=== PATIENT | male | born 1960 | race Hispanic/Latino ===

== ENCOUNTER 2024-03-24 06:32 | Day surgery (SDC) | payer OTHER ==
[2024-03-22 10:52] LABS: BASOPHILS # (AUTO) 0.03 K/uL (0.00-0.20); BASOPHILS % (AUTO) 0.6 % (0.0-5.0); EOSINOPHILS # (AUTO) 0.09 K/uL (0.00-0.70); EOSINOPHILS % (AUTO) 1.9 % (0.0-8.0); HEMATOCRIT 43.7 % (42-54); IMMATURE GRANULOCYTE ABSOLUTE 0.01 K/uL (0-1); LYMPHOCYTES # (AUTO) 1.4 K/uL (1.0-4.8); LYMPHOCYTES % (AUTO) 28.5 % (21.0-51.0); MEAN CORPUSCULAR HEMOGLOBIN 31.5 pg (27.0-33.0); MEAN CORPUSCULAR HGB CONC 33.6 g/dL (32.0-36.0); MEAN CORPUSCULAR VOLUME 93.8 fL (79-99); MONOCYTES # (AUTO) 0.5 K/uL (0.1-1.0); MONOCYTES % (AUTO) 11.2 % (3.0-13.0); NEUTROPHILS # (AUTO) 2.8 K/uL (1.8-7.7); NEUTROPHILS % (AUTO) 57.6 % (40.0-77.0); PLATELET COUNT (AUTO) 133 K/uL (130-400); RED BLOOD CELL COUNT(AUTO) 4.66 MIL/uL (4.50-6.20); WHITE BLOOD COUNT (AUTO) 4.8 K/uL (4.8-10.8)
[2024-03-22 11:03] LABS: APPEARANCE,URINE CLEAR (CLEAR); BILIRUBIN,URINE NEGATIVE (NEGATIVE); COLOR,URINE YELLOW (YELLOW); GLUCOSE, URINE (UA) NEGATIVE (NEGATIVE); KETONES,URINE NEGATIVE (NEGATIVE); LEUKOCYTE ESTERASE ,URINE NEGATIVE Leu/uL (NEGATIVE); NITRATE,URINE NEGATIVE (NEGATIVE); OCCULT BLOOD,URINE NEGATIVE (NEGATIVE); PROTEIN,URINE 10 mg/dL (NEGATIVE)
[2024-03-22 11:05] LABS: INR 0.98 (0.85-1.15); PROTHROMBIN TIME 10.6 SEC (9.6-11.6)
[2024-03-22 11:06] LABS: PARTIAL THROMBOPLASTIN TIME 27.1 SEC (26.3-35.5)
[2024-03-22 11:08] LABS: ADD UA MICROSCOPIC YES
[2024-03-22 11:21] VITALS: BP 152/87; PULSE 58; RESP 16; TEMP 97.4
[2024-03-22 11:31] LABS: B-TYPE NATRIURETIC PEPTIDE 32 pg/mL (0-100)
[2024-03-22 11:35] LABS: BACTERIA,URINE RARE /HPF (None Seen); MUCUS,URINE MOD LPF (None Seen)
--- NOTE | 2024-03-22 11:43 | EKG ---
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
--- NOTE | 2024-03-22 12:27 | HMCIMG ---
CHEST 1VW REASON: PRE OP COMPARISON: 11/23/2009 FINDINGS: Single view of the chest was obtained. Lungs are clear. Heart size is normal. There is no pulmonary vascular congestion. Mediastinum and bony thorax appear unremarkable. There is been a previous median sternotomy. IMPRESSION: 1. No acute process seen in the chest.
[2024-03-22 12:38] LABS: POTASSIUM 3.9 mmol/L (3.5-5.1)
[2024-03-24] VITALS (12 sets, daily range): BP systolic 128–152; BP diastolic 75–89; PULSE 51–75; RESP 11–17; TEMP 97.2–97.3
[~2024-03-24] VITALS: Ht 172.7 cm; Wt 90.9 kg
[~2024-03-24 06:32] MED LIST: AEC81 PO; ATOR20TA65 PO; FAMO20TA8 PO; LATA7.5D OP; METO50TA18 PO; TAMS-1 PO
[2024-03-24] MEDS: 0.9%NACL 1000ML 1,000 ML IV SCH (06:54)
[2024-03-24] MEDS ORDERED: LIDOCAINE HCL 400MG/20ML VIAL ONE (10:13)
[2024-03-24] MEDS ORDERED: HEParin-NS 1,000 UNIT/500 ML 1,000 ML IV ONE (10:13)
[2024-03-24] MEDS ORDERED: HEParin 10,000 UNIT/10ML (1,000 UNIT/ML) VIAL ONE (10:13)
[2024-03-24] MEDS ORDERED: IOHEXOL 350 MG/ML 100ML INFUS..BTL IV ONE (10:13)
[2024-03-24] MEDS ORDERED: NITROGLYCERIN 50MG VIAL ONE (10:14)
[2024-03-24] MEDS ORDERED: MIDAZOLAM HCL 1 MG/ML 2ML VIAL ONE ×3 (10:47→11:45)
[2024-03-24] MEDS ORDERED: MEPERIDINE-PF 25 MG/ML SYG ONE ×3 (10:47→11:46)
[2024-03-24] MEDS ORDERED: ATROPINE 1MG SYG IVP ONE (10:56)
[2024-03-24] MEDS ORDERED: cloPIDOgrel 300MG TAB ONE (11:56)
[2024-03-24] MEDS ORDERED: 0.9%NACL 1000ML 1,000 ML IV SCH (12:00)
--- NOTE | 2024-03-24 13:07 | PR ---
PROCEDURES: * Left heart catheterization. * Selective diagnostic right and left coronary arteriogram. * Multiple saphenous vein graft angiogram. * GIORDANO angiogram. * Balloon angioplasty and stent placement of the posterior left ventricular branch of the right coronary artery. * Balloon angioplasty and stenting of the distal RCA. Both stents were placed through the saphenous vein graft to the RCA. INDICATIONS: * Severe coronary artery disease. * Status post remote coronary artery bypass graft surgery x 3. * Recurrent angina. * Abnormal stress test. COMPLICATIONS: None. TOTAL CONTRAST: 120 mL. Anesthesia was administered for a total of 1 hour. DESCRIPTION OF PROCEDURE: The patient was taken to the cardiac medical laboratory technicians after the appropriate operative consents were signed. He was prepped and draped in the usual fashion. After conscious sedation was administered, the right common femoral artery region was infiltrated with 2% Xylocaine without epinephrine. At this point, ultrasound guidance was utilized to access the right common femoral artery, which was accessed utilizing a micropuncture needle. The wire was then advanced and exchanged for a 0.035 wire. A 6-[place] sheath was advanced in retrograde fashion by the modified Seldinger technique. At this point, an FL4 6-[place] diagnostic catheter was advanced and selectively engaged in the ostium of the left main. Imaging was obtained in multiplane. The left main was a small vessel that was calcified, had a distal 80% stenotic lesion. It trifurcated into LAD, and intermediate, and circumflex. Circumflex coronary artery was a small vessel that gave rise to several small marginals. The second marginal was noted to have 90% lesion; however, there was a 0.5 mm vessel. The intermediate was 100% occluded and not seen by lovelock injections further more than proximal 2 cm. The LAD was moderately sized vessel that had a 90% proximal lesion before branching diagonal that also had a 90% lesion. The mid LAD had a 70% lesion. There was evidence of competitive flow from a mammary artery supplying the LAD. At this point, the catheter was withdrawn and FR4 6-[place] catheter was advanced and placed in the left ventricular cavity. Left ventricular end-diastolic pressure measurement was obtained. Ventriculography was deferred. The patient's left ventricular end-diastolic pressure was measured at 21. The patient had a preserved LV systolic function by noninvasive echocardiographic studies. Pullback revealed no aortic stenosis. The catheter was then engaged in the right coronary artery. Imaging was obtained in multiplane. The right coronary artery was moderately large vessel that gave rise to a sinus lauren artery and acute marginal branch. The right coronary artery had a proximal 80% stenotic lesion, the acute marginal branch had a 90% stenotic lesion and the RCA was 100% occluded after that. There was evidence of auto collateralization from acute marginal branch of the PDA. This was also collateralization to the distal LAD by acute marginal branch of the right coronary artery. The catheter was withdrawn and at this point, we utilized a left coronary bypass graft catheter that was engaged in the left saphenous vein graft to the intermediate. This was a large graft that had no stenotic lesions supplied a moderately sized intermediate with good flow. The catheter was withdrawn in the GIORDANO, an IMT guide was selected and engaged in the left internal mammary artery, which was imaged. This was a moderately sized vessel supplying the mid LAD. The distal LAD was 100% occluded as has been documented by prior assessment. Right coronary bypass graft guide was selected to engage in the ostium of the right coronary artery. Imaging was obtained in multiplane identifying a large saphenous vein graft to the RCA. This is attached to the distal segment of the RCA, however, distal to the anastomosis, there was an 80% stenotic lesion before the vessel bifurcated into LAD and a branching PLVB. The PDA was small and had an ostial 99-100% stenosis and was collateralized by the acute marginal branch as mentioned. The PLVB was a large vessel that had a 90% stenotic lesion. Given the patient's symptoms, and his abnormal stress test, we elected to proceed with angioplasty and stenting of the PLVB and the distal RCA through the saphenous vein graft. The guide had been utilized and we were able to engage it into the ostium of the graft to the RCA. We were able to advance a 0.014 wire after full heparinization that was positioned into the distal PLVB branch. The patient had a 2.25 x 26 [place] advanced and placed in the posterior left ventricular branch and inflated to 16 atmospheres at 2.4 mm size with good angiographic results. Then, we placed a stent in the distal RCA through the saphenous vein graft. We utilized a 2.5 x 15 [place] that was postdilated with a 2.75 mm balloon to 20 atmospheres at 2.84 mm size with good angiographic results. At this point, the procedure was completed, attempts at Perclose failed; however, basket was utilized with good hemostasis. The patient tolerated the procedure well and left the medical laboratory technicians in stable condition. FINAL IMPRESSION: * Severe lovelock 3-vessel coronary artery disease. * Patent 3 of 3 grafts, GIORDANO to the LAD, saphenous vein graft to the intermediate, saphenous vein graft to the right coronary artery. * Successful balloon angioplasty and stent placement in the posterior left ventricular branch of RCA with a 2.25 x 26, postdilated to 2.4 mm size and angioplasty and stenting of the distal RCA with a 2.5 x 15 [place] stent, postdilated with a 2.75 mm size to 20 atmospheres at 2.84 mm size with good angiographic results. PLAN: Continue medical management. TID: [id number] RECEIPT: [id number]
--- NOTE | 2024-03-24 14:45 | NUR ---
REPORT: HAND OFF COMMUNICATION GIVEN TO KATARINA PADILLA RN
== END 2024-03-24 18:30 | disposition home or self-care (01) ==
LOC: DAH 06:32
PROVIDERS: ATTEND Internal Medicine Cardiovascular Disease
DX: I25.118 Atherosclerotic heart disease of native coronary artery with other forms of angina pectoris (principal); T82.218A Other mechanical complication of coronary artery bypass graft, initial encounter; R94.39 Abnormal result of other cardiovascular function study; I10 Essential (primary) hypertension; E78.5 Hyperlipidemia, unspecified; Z98.890 Other specified postprocedural states; Z95.1 Presence of aortocoronary bypass graft; Z95.5 Presence of coronary angioplasty implant and graft; Z79.01 Long term (current) use of anticoagulants; Z79.899 Other long term (current) drug therapy; Z90.49 Acquired absence of other specified parts of digestive tract; Y71.2 Prosthetic and other implants, materials and accessory cardiovascular devices associated with adverse incidents
CPT/HCPCS: 80048; 83880; 85025; 85610; 85730; 81001; 36415; 71045; 93005; 85347; 93459; C9604; C1769 ×2; C1894 ×2; C1874 ×2; C1887; C1760 ×2; C1725; J3490 ×2; J1644 ×2; J2250 ×3; J2175 ×3; Q9967; A4215; A4222; A4221; A4663; A4216; A4606; C9605; Q9965 ×2; A4223 ×3; 96360; 96361; 99156; 99157; J0461